=== PATIENT | female | born 1975 | race Caucasian/White ===

== ENCOUNTER → 2019-07-17 | Outpatient (CLI) | payer OTHER ==
[2019-07-18 15:10] LABS: HPV 16 Negative (Negative); HPV 18 Negative (Negative); HPV OTHER HR TYPES Negative (Negative)
== END ==
LOC: LAB 12:28 → LAB SHORT 12:28
PROVIDERS: Registered Nurse Community Health
DX: Z01.419 Encounter for gynecological examination (general) (routine) without abnormal findings (principal)
CPT/HCPCS: 87624; G0123

== ENCOUNTER → 2020-06-23 | Outpatient (CLI) | payer OTHER | END | disposition home or self-care (01) | LOC: PLD 15:10 → LAB SHORT 15:10 | DX: N92.0 Excessive and frequent menstruation with regular cycle (principal); R10.2 Pelvic and perineal pain | CPT/HCPCS: 87086; 88305 ==

== ENCOUNTER → 2021-02-17 | Outpatient (CLI) | payer OTHER ==
[2021-02-17 13:10] LABS: BASOPHILS ABSOLUTE AUTO 0.04 K/mm3 (0.00-0.23); BASOPHILS PERCENT AUTO 1 % (0-2); EOSINOPHILS ABSOLUTE AUTO 0.19 K/mm3 (0.00-0.68); EOSINOPHILS PERCENT AUTO 4 % (0-6); Hematocrit 41.2 % (33.0-51.0); Hemoglobin 13.5 g/dL (11.5-16.0); IMMATURE GRAN ABSOLUTE AUTO 0.01 K/mm3 (0.00-0.10); IMMATURE GRAN PERCENT AUTO 0 % (0-1); LYMPHOCYTES ABSOLUTE AUTO 1.13 K/mm3 (0.84-5.20); LYMPHOCYTES PERCENT AUTO 26 % (21-46); MONOCYTES ABSOLUTE AUTO 0.44 K/mm3 (0.16-1.47); MONOCYTES PERCENT AUTO 10 % (4-13); Mean Corpuscular HGB 27.8 pg (26.0-34.0); Mean Corpuscular HGB Conc 32.8 g/dL (31.5-36.5); Mean Corpuscular Volume 85 fL (80-100); Mean Platelet Volume 10.6 fL (9.1-12.4); NEUTROPHILS ABSOLUTE AUTO 2.53 K/mm3 (1.96-9.15); NEUTROPHILS PERCENT AUTO 58 % (41-73); Platelet Count 261 K/mm3 (150-400); RDW Coefficient Variation 14.1 % (11.7-14.2); RDW Standard Deviation 43.4 fL (35.1-46.3); Red Blood Cell Count 4.85 M/mm3 (3.80-5.20); White Blood Cell Count 4.34 K/mm3 (4.00-11.30)
[2021-02-17 14:09] LABS: Percent Saturation 10.1 % (15.0-50.0)
[2021-02-17 14:10] LABS: Triiodothyronine, Free 3.02 pg/mL (2.18-3.98)
== END | disposition home or self-care (01) ==
LOC: LAB SHORT 09:50 → LAB 09:50
PROVIDERS: Family Medicine
DX: E04.1 Nontoxic single thyroid nodule (principal); R53.81 Other malaise; R53.83 Other fatigue
CPT/HCPCS: 82306; 82728; 83540; 83550; 84443; 84481; 85025

== ENCOUNTER → 2022-02-01 | Outpatient (CLI) | payer OTHER ==
[2022-02-01 17:16] LABS: Source, Urine Clean Catch
[2022-02-01 18:53] LABS: Appearance, Urine Clear (Clear); Bilirubin, Urine Neg (Neg); Blood, Urine Neg (Neg); Color, Urine Yellow (P-Yellow); Glucose Qualitative, Urine Neg (Neg); Ketones, Urine Neg (Neg); Leukocyte Esterase, Urine Neg (Neg); Nitrite, Urine Neg (Neg); Protein, Urine Neg (Neg); Urobilinogen, Urine NORM (Normal)
== END | disposition home or self-care (01) ==
LOC: LAB SHORT 17:13 → LAB 17:13
PROVIDERS: Obstetrics & Gynecology
DX: Z01.812 Encounter for preprocedural laboratory examination (principal)
CPT/HCPCS: 81003

== ENCOUNTER 2023-11-10 09:04 | Day surgery (SDC) | payer OTHER ==
[~2023-11-10] VITALS: Ht 167.6 cm; Wt 82.9 kg
[~2023-11-10 09:04] MED LIST: ALBU90OI INH; Lactated Ringer's 1,000 ML IV SCH
[2023-11-10] MEDS ORDERED: IBUP200 PO (10:04)
[2023-11-10 10:11] VITALS: BP 123/53
--- NOTE | 2023-11-10 10:21 | NUR ---
Ambulatory in Day Surgery. History, Chart, Medications and Allergies reviewed before start of procedure. Lungs clear T/O to Auscultation. Patient confirms NPO status and agrees with scheduled surgery. Patient States Post-Procedure ride home has been arranged.
[2023-11-10] MEDS ORDERED: propofoL 40 ML IV ONE (10:29)
[2023-11-10] MEDS ORDERED: Midazolam HCl 1MG / ML 2ML Vial ONE (10:42)
[2023-11-10 10:58] VITALS: BP 123/77
--- NOTE | 2023-11-10 10:58 | NUR ---
PT TO DAY SURGERY STEP DOWN FROM COLONOSCOPY; BEDSIDE REPORT RECEIVED. PT IS AWAKE, ALERT AND ORIENTED; ABLE TO MOVE SELF IN BED. VSS. PT HAS NO COMPLAINTS AT THIS TIME.
[2023-11-10 11:13] VITALS: BP 119/68
--- NOTE | 2023-11-10 11:22 | NUR ---
Patient up to Ambulate independently. Gait steady. Discharge instructions reviewed with patient. Patient verbalizes understanding. Copy given to patient to take home. Patient States Post-Procedure ride home has been arranged. Discharged via wheelchair to private car for ride home. ALL BELONGINGS RETURNED TO PATIENT.
--- NOTE | 2023-11-10 14:48 | NUR ---
11/10/23 1448 Carlos Manuel Baker HISTORY, CHART, MEDICATIONS AND ALLERGIES REVIEWED BEFORE START OF PROCEDURE. PATIENT CONFIRMS NPO STATUS AND AGREES WITH SCHEDULED PROCEDURE. 3-LEAD EKG REVIEWED WITH PHYSICIAN PRIOR TO START OF PROCEDURE. MONITOR INTACT WITH CONTINUOUS PULSE OXIMETRY,CAPNOGRAPHY, 3-LEAD EKG, INTERMITTENT BP. SUPPLEMENTAL O2 TO BE TITRATED THROUGHOUT PROCEDURE TO MAINTAIN O2 SATURATION ABOVE 90%. PATIENT DETERMINED TO BE ASA APPROPRIATE FOR PROPOFOL SEDATION PRIOR TO START OF PROCEDURE BY DR. MCCARTHY.
== END 2023-11-10 22:42 | disposition home or self-care (01) ==
LOC: ORSCMMR 09:04 → ORD 10:00 → ORSCMMR 10:00
PROVIDERS: Internal Medicine Gastroenterology
PROC: 0DJD8ZZ Inspection of Lower Intestinal Tract, Via Natural or Artificial Opening Endoscopic (ICD-10-PCS; principal; 2023-11-10 10:00)
DX: Z12.11 Encounter for screening for malignant neoplasm of colon (principal); K64.8 Other hemorrhoids; J45.909 Unspecified asthma, uncomplicated; Z79.899 Other long term (current) drug therapy
CPT/HCPCS: J2250; J2704; J7120

== ENCOUNTER → 2024-02-21 | Outpatient (CLI) | payer OTHER ==
[~2024-02-21] MED LIST changes: +IBUP200 PO; -Lactated Ringer's 1,000 ML IV SCH
[2024-02-21 19:02] LABS: BASOPHILS ABSOLUTE AUTO 0.07 K/mm3 (0.00-0.23); BASOPHILS PERCENT AUTO 1 % (0-2); EOSINOPHILS ABSOLUTE AUTO 0.25 K/mm3 (0.00-0.68); EOSINOPHILS PERCENT AUTO 4 % (0-6); Hematocrit 41.1 % (33.0-51.0); Hemoglobin 14.2 g/dL (11.5-16.0); IMMATURE GRAN ABSOLUTE AUTO 0.01 K/mm3 (0.00-0.10); IMMATURE GRAN PERCENT AUTO 0 % (0-1); LYMPHOCYTES ABSOLUTE AUTO 1.73 K/mm3 (0.84-5.20); LYMPHOCYTES PERCENT AUTO 29 % (21-46); MONOCYTES ABSOLUTE AUTO 0.45 K/mm3 (0.16-1.47); MONOCYTES PERCENT AUTO 8 % (4-13); Mean Corpuscular HGB 29.4 pg (26.0-34.0); Mean Corpuscular HGB Conc 34.5 g/dL (31.5-36.5); Mean Corpuscular Volume 85 fL (80-100); Mean Platelet Volume 11.7 fL (9.1-12.4); NEUTROPHILS ABSOLUTE AUTO 3.51 K/mm3 (1.96-9.15); NEUTROPHILS PERCENT AUTO 58 % (41-73); Platelet Count 277 K/mm3 (150-400); RDW Coefficient Variation 13.2 % (11.7-14.2); RDW Standard Deviation 40.6 fL (35.1-46.3); Red Blood Cell Count 4.83 M/mm3 (3.80-5.20); White Blood Cell Count 6.02 K/mm3 (4.00-11.30)
[2024-02-22 00:50] LABS: Albumin, Blood 3.6 g/dL (3.4-5.0); Albumin/Globulin Ratio 1.1 (0.8-1.8); Alk Phos 94 U/L (50-136); Anion Gap 12 mmol/L (3-11); Aspartate Aminotrans (AST/SGOT 20 U/L (12-37); Bilirubin, Total 0.2 mg/dL (0.1-1.0); Blood Urea Nitrogen 14 mg/dL (8-24); Bun/Creatinine Ratio 17.3 (12.0-20.0); CHOL/HDL RATIO 5.4; CO2, Blood 22 mmol/L (21-32); Calcium, Blood 8.2 mg/dL (8.5-10.1); Chloride, Blood 112 mmol/L (98-108); Cholesterol 207 mg/dL (50-200); Creatinine, Blood 0.81 mg/dL (0.40-1.00); Ferritin, Serum 7 ng/mL (8-252); Globulin, Blood 3.2 g/dL (2.2-4.0); Glomerular Filtration Rate 88 (60-); Glucose, Blood 100 mg/dL (70-99); HDL Cholesterol 38 mg/dL (>39); Iron Serum 53 ug/dL (50-170); LDL/HDL RATIO Unable to Calculate; Low Density Lipoprotein Chol Unable to Calculate mg/dL (0-110); Percent Saturation 13.9 % (15.0-50.0); Sodium, Blood 142 mmol/L (136-145); Thyroid Stimulating Hormone 0.789 uIU/mL (0.360-4.800); Total Iron Binding Capacity 380 ug/dL (250-450); Total Protein, Blood 6.8 g/dL (6.4-8.2); Triglycerides 880 mg/dL (30-160); Very Low Density Lipoprot Chol Unable to Calculate mg/dL (6-32)
[2024-02-22 01:26] LABS: Alanine Aminotransfer (ALT/SGP 31 U/L (12-78)
[2024-02-22 01:48] LABS: LDL Direct Measurement 93 mg/dL (0-130)
== END ==
LOC: LAB 17:37 → LAB SHORT 17:37
PROVIDERS: Family Medicine
DX: R53.82 Chronic fatigue, unspecified (principal); Z79.899 Other long term (current) drug therapy
CPT/HCPCS: 80053; 80061; 82306; 82607; 82728; 82746; 83036; 83540; 83550; 83721; 84443; 85025

== ENCOUNTER → 2024-05-29 | Outpatient (CLI) | payer OTHER | LOC: LAB SHORT 15:15 → LAB 15:15 | DX: R35.0 Frequency of micturition (principal) | CPT/HCPCS: 87086 ==

== ENCOUNTER 2024-06-18 08:35 | Day surgery (SDC) | payer OTHER ==
[~2024-06-18] VITALS: Ht 170.2 cm; Wt 83.7 kg
[~2024-06-18 08:35] MED LIST changes: +NS 500 ML IV ONE
--- NOTE | 2024-06-18 09:43 | NUR ---
06/18/24 0943 Rocio Wolfe PER PATIENT SHE CAME DOWN WITH A FEVER AND BODY ACHES THIS PAST Tuesday06/16/23. PER PATIENT SHE WAS EXPERIENCING A FEVER UNTIL YESTERDAY MORNING. PER PATIENT SHE HAS NOT EATEN ANYTHING SINCE TUESDAY ABOUT NOON.
[2024-06-18] MEDS ORDERED: NS 500 ML IV ONE (09:45)
[2024-06-18] MEDS ORDERED: Cyclobenzaprine5 MG (09:49)
[2024-06-18] MEDS ORDERED: BENZONATATE100 MG PO (09:49)
[2024-06-18] MEDS ORDERED: TRIDERM28.4 GM (09:49)
[2024-06-18] MEDS ORDERED: FERSU300 (09:50)
[2024-06-18] MEDS ORDERED: HYDCHL12.5 (09:51)
[2024-06-18] MEDS ORDERED: FentaNYL Citrate 50 MCG/ML 2 ML Injection ONE (09:55)
[2024-06-18] MEDS ORDERED: Midazolam HCl 1MG / ML 2ML Vial ONE (09:56)
[2024-06-18 11:02] VITALS: BP 125/69
== END 2024-06-18 11:00 | disposition home or self-care (01) ==
LOC: ORSCSDS 08:35
PROVIDERS: Orthopaedic Surgery
PROC: 01N54ZZ Release Median Nerve, Percutaneous Endoscopic Approach (ICD-10-PCS; principal; 2024-06-18 10:30)
PROC: 0LN70ZZ Release Right Hand Tendon, Open Approach (ICD-10-PCS; principal; 2024-06-18 10:30)
PROC: 01N50ZZ Release Median Nerve, Open Approach (ICD-10-PCS; principal; 2024-06-18 10:30)
DX: G56.01 Carpal tunnel syndrome, right upper limb (principal); M65.321 Trigger finger, right index finger; M65.331 Trigger finger, right middle finger
CPT/HCPCS: J2250; J3010; J7040

== ENCOUNTER 2025-02-04 06:35 | Day surgery (SDC) | payer OTHER ==
[~2025-02-04] VITALS: Ht 170.2 cm; Wt 87.9 kg
[~2025-02-04 06:35] MED LIST changes: +BENZONATATE100 MG PO; +Cyclobenzaprine5 MG; +FERSU300; +HYDCHL12.5; +Lidocaine 1%-Epineph 1:100000 20 ML MDV ONE; -NS 500 ML IV ONE; +TRIDERM28.4 GM
[2025-02-04] MEDS ORDERED: CeFAZolin Sodium 2,000 MG VIAL ONE (06:45)
[2025-02-04] MEDS ORDERED: Budeprion Xl300 MG PO (07:00)
[2025-02-04] MEDS ORDERED: Midazolam HCl 1MG / ML 2ML Vial ONE (08:16)
[2025-02-04] MEDS ORDERED: FentaNYL Citrate 50 MCG/ML 2 ML Injection ONE (08:26)
--- NOTE | 2025-02-04 08:41 | NUR ---
02/04/25 0841 Yessica Rabago REPORT FROM RN
[2025-02-04 08:53] VITALS: BP 123/76
== END 2025-02-04 09:17 | disposition home or self-care (01) ==
LOC: ORSCSDS 06:35
PROVIDERS: Orthopaedic Surgery
PROC: 01N54ZZ Release Median Nerve, Percutaneous Endoscopic Approach (ICD-10-PCS; principal; 2025-02-04 08:00)
PROC: 0LN80ZZ Release Left Hand Tendon, Open Approach (ICD-10-PCS; principal; 2025-02-04 08:00)
DX: G56.02 Carpal tunnel syndrome, left upper limb (principal); M65.332 Trigger finger, left middle finger; M65.322 Trigger finger, left index finger; J45.909 Unspecified asthma, uncomplicated; Z79.899 Other long term (current) drug therapy
CPT/HCPCS: J0690; J2250; J3010; J7120